=== PATIENT | female | born 1985 | race Caucasian/White ===

== ENCOUNTER 2019-03-06 13:27 | Emergency (ER) | payer BC, MEDICAID ==
[~2019-03-06] VITALS: Ht 165.1 cm; Wt 64.0 kg
[2019-03-06 13:30] VITALS: BP_SYST 103
[2019-03-06] MEDS ORDERED: KETOROLAC TROMETHAMINE 30 MG VIAL IM ONE (13:30)
[2019-03-06] MEDS ORDERED: DEXAMETHASONE SOD PHOSPHATE 10 MG/ML VIAL IM ONE (13:45)
[2019-03-06] MEDS ORDERED: ACETAMINOPHEN 500 MG TABLET PO ONE (14:00)
[2019-03-06 14:07] LABS: HCG,QUAL RESULT NEGATIVE (NEGATIVE)
[2019-03-06] MEDS ORDERED: ONDANSETRON 4 MG ODT TAB PO ONE (14:45)
[2019-03-06 15:43] VITALS: BP_SYST 110
== END 2019-03-06 15:43 | disposition home or self-care (01) ==
LOC: SED 13:27
DX: S16.1XXA Strain of muscle, fascia and tendon at neck level, initial encounter (principal); S09.90XA Unspecified injury of head, initial encounter; X58.XXXA Exposure to other specified factors, initial encounter; Y93.89 Activity, other specified; Y92.89 Other specified places as the place of occurrence of the external cause; Y99.8 Other external cause status
CPT/HCPCS: 72125; 81002; 81025; 84703; 96372; 99284; J1100; J1885; Q0162